=== PATIENT | female | born 1980 | race African-American/Black ===

== ENCOUNTER 2019-12-10 16:16 | Emergency (ER) | payer OTHER ==
[~2019-12-10] VITALS: Ht 170.2 cm; Wt 91.1 kg
[2019-12-10] MEDS ORDERED: ZOLO50TA PO (17:01)
[2019-12-10] MEDS ORDERED: NYQUIL PO (17:01)
[2019-12-10] MEDS ORDERED: ACET-683 PO (17:01)
[2019-12-10] MEDS ORDERED: ALL10TAB2 PO (17:01)
[2019-12-10] MEDS ORDERED: PSEU30TA85 PO (17:01)
[2019-12-10 18:25] VITALS: BP 122/63
== END 2019-12-10 19:19 | disposition home or self-care (01) ==
LOC: M ED 16:16
DX: Z11.59 Encounter for screening for other viral diseases (principal); B34.2 Coronavirus infection, unspecified; Z79.899 Other long term (current) drug therapy; Z91.010 Allergy to peanuts; Z20.828 Contact with and (suspected) exposure to other viral communicable diseases

== ENCOUNTER 2020-09-14 15:34 | Emergency (ER) | payer OTHER ==
[~2020-09-14 15:34] MED LIST: ACET-683 PO; ALL10TAB2 PO; NYQUIL PO; PSEU30TA85 PO; ZOLO50TA PO
--- NOTE | 2020-09-14 16:47 | REP ---
INDICATION: chest pain. COMPARISON: No comparison chest x-ray. TECHNIQUE: Portable upright AP chest radiograph. FINDINGS: The lungs are well inflated and free of infiltrate. Pleural angles are sharp. Heart size is normal. Pulmonary vasculature is not increased. EKG monitoring electrodes are seen. IMPRESSION: Negative portable chest x-ray.. <Electronically signed by Roger Orta > 09/14/20 [id number]
[2020-09-14] MEDS ORDERED: ACETAMINOPHEN 325 MG TAB PO ONE (17:00)
[2020-09-14 17:04] LABS: BASO % 0.5 % (0.0-1.0); EOS # 0.3 10^3/uL (0.0-0.5); EOS % 3.5 % (0.0-3.0); HEMATOCRIT 34.6 % (36.0-47.0); HEMOGLOBIN 11.2 g/dl (12.0-15.5); LYMPH # 1.5 10^3/uL (1.5-5.0); LYMPH % 19.2 % (24.0-44.0); MEAN CORPUSCULAR HEMOGLOBIN 26.9 pg (27.0-33.0); MEAN CORPUSCULAR HGB CONC 32.4 g/dl (32.0-36.5); MONO # 0.6 10^3/uL (0.0-0.8); MONO % 7.3 % (2.0-8.0); NEUTROPHILS # 5.3 10^3/uL (1.5-8.5); NEUTROPHILS % 68.5 % (36.0-66.0); PLATELET COUNT, AUTOMATED 256 10^3/uL (150-450); RED BLOOD COUNT 4.17 10^6/uL (4.00-5.40); WHITE BLOOD COUNT 7.8 10^3/uL (4.0-10.0)
[2020-09-14 18:43] VITALS: BP 126/76
--- NOTE | 2020-09-15 19:44 | ECGEPIP ---
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
== END 2020-09-14 18:45 | disposition home or self-care (01) ==
LOC: M ED 15:34
DX: O26.892 Other specified pregnancy related conditions, second trimester (principal); M54.12 Radiculopathy, cervical region; R07.89 Other chest pain; O99.512 Diseases of the respiratory system complicating pregnancy, second trimester; J45.909 Unspecified asthma, uncomplicated; Z91.010 Allergy to peanuts; Z3A.20 20 weeks gestation of pregnancy

== ENCOUNTER 2021-01-09 11:40 | Outpatient (CLI) | payer OTHER ==
[~2021-01-09] VITALS: Ht 170.2 cm; Wt 108.6 kg
[~2021-01-09 11:40] MED LIST changes: -PSEU30TA85 PO; +PSEU30TA86 PO
[2021-01-09] MEDS ORDERED: LR 1,000 ML IV SCH (11:55)
[2021-01-09] MEDS ORDERED: LR 1,000 ML IV ONE (11:55)
[2021-01-09 12:02] VITALS: BP 120/73
[2021-01-09] MEDS ORDERED: ONDANSETRON 4MG/2ML VIAL IV ONE (12:15)
[2021-01-09] MEDS ORDERED: FAMOTIDINE INJ 20MG/2ML VIAL (S0028 PER 1) IVP ONE (12:30)
[2021-01-09 13:14] VITALS: BP 123/74
[2021-01-09] MEDS ORDERED: hydrOXYzine 50 MG TAB PO STA (14:07)
--- NOTE | 2021-01-09 14:58 | IPNPDOC ---
Obstetrical Progress Note Date of Service Jan 09, 2021 Subjective 40 yo at 36w0d with BELINDA of 06 FEB 2021 was sent from the clinic for prolonged monitoring and IV fluids. Patient reports that she has been feeling contractions and they have been painful. She also reports that she has heartburn and nausea. She denies vaginal bleeding, leaking of fluid and reports positive movement. She reports that she has not been able to hydrate well due to being hot outside. Objective Vital Signs Date Time Temp Pulse Resp B/P (MAP) Pulse Ox O2 Delivery O2 Flow Rate FiO2 01/09/21 12:02 97.8 88 18 120/73 (89) She reports that her nausea and heartburn is better after IV fluids, pepcid, and nausea. She has been able to eat a meal and tolerated meal well. Cervical exam: Long, thick, closed, posterior, and high Assessment Heart Rate (FHR): 125 Variability: Moderate Accelerations: Present Decelerations: None Tocometer Contractions: Yes Frequency: irregular Assessment and Plan Age: 40 : 5 Term: 2 Pre-term: 0 Abortions: 2 Livin Weeks & Days 36w0d Status: Reassuring Group B Streptococcus: Unknown Additional Comments Discharge to home, certified not in labor Recommended to keep all appointments with [place] [place] [facility] Recommended to hydrate well with 4 liters of water per day Recommended to supervisor opening and picking pepcid that was previously prescribed at the pharmacy Vistaril 100 mg PO given prior to discharge [facility] and PTL precautions discussed. Recommended to return to L&D if symptoms worsen or persist YANG BATEMAN CNM Jan 09, 2021 14:13
== END 2021-01-09 14:41 | disposition home or self-care (01) ==
LOC: M LDO 11:40
PROVIDERS: ATTEND Registered Nurse Maternal Newborn
DX: O47.1 False labor at or after 37 completed weeks of gestation (principal); Z3A.38 38 weeks gestation of pregnancy
CPT/HCPCS: 59025; 96361; 96374; 96375; G0378; G0463; J2405

== ENCOUNTER 2021-01-13 09:42 | Outpatient (CLI) | payer OTHER ==
[~2021-01-13] VITALS: Ht 167.6 cm; Wt 108.9 kg
[2021-01-13 10:00] VITALS: BP 127/71
[2021-01-13] MEDS ORDERED: PRENTAB9 PO (10:11)
[2021-01-13] MEDS ORDERED: HOME MED LIST COMPLETE! XX SCH (10:15)
[2021-01-13 11:20] VITALS: BP 117/77
[2021-01-13] MEDS ORDERED: CYCLOBENZAPRINE 10MG TABLET PO ONE (11:30)
--- NOTE | 2021-01-13 11:51 | IPNPDOC ---
Obstetrical Progress Note Date of Service Jan 13, 2021 Subjective 41 yo @ 36+4 with BELINDA og 07sep 2020 presents complaining of left sided abdominal cramping. reports worsening with movements and better at rest. at its worse cramping gets to a 8/10 and at rest is 3-5/10. patient reports that this pain is different from contraction pain, which is having about 2-4 times per hour. she reports pink discharge this morning, denies intercourse, but was seen 4 days ago and was checked at that time. she denies any fevers chills, nause or vomiting. 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 she denies any urgency, frequency or dysurea. she has no other concerns. Objective Vital Signs Date Time Temp Pulse Resp B/P (MAP) Pulse Ox O2 Delivery O2 Flow Rate FiO2 01/13/21 11:20 97.5 96 18 117/77 (90) 01/13/21 10:00 98 Room Air EXAM NORMAL VITALS ABOVE Regular rate tenderness on the left abdominus muscles with palpation. no CVA tender or suprapubic tenderness SVE: C/T/H Assessment Heart Rate (FHR): 140 Variability: Moderate Accelerations: Positive Decelerations: None Heart Rate Tracing: Category I Tocometer Contractions: Yes Frequency: irregular Sterile Vaginal Examination Dilation: None Station: -3 Cervical Consistency: Medium Cervical Position: Posterior Postion/Presentation: Cephalic presentation Assessment and Plan Status: Reassuring Group B Streptococcus: Unknown Anticipate: Other Additional Comments 41 yo @ 36+4 with BELINDA og 07sep 2020 presents complaining of left sided abdominal cramping. noted to be having muscle spasms. irregular contractions in monitor and closed on SVE, So unlikely that she is in labor. -will start her on flexeril this morning and discharge her with extra pills. -Will start on magnesium oxide for cramping. -F/U in clinic as previously scheduled and they will collect her GBS then as well as place on the induction schedule for 39 weeks for AMA. -GIiven strict return precautions. CHARITY NAYLOR MD Jan 13, 2021 11:51
[2021-01-13] MEDS ORDERED: CYCL5TAB PO (11:53)
[2021-01-13] MEDS ORDERED: MAGN300C PO (11:57)
== END 2021-01-13 12:35 | disposition home or self-care (01) ==
LOC: M LDO 09:42
PROVIDERS: ATTEND Obstetrics & Gynecology
DX: O26.893 Other specified pregnancy related conditions, third trimester (principal); Z3A.36 36 weeks gestation of pregnancy; R25.2 Cramp and spasm; N89.8 Other specified noninflammatory disorders of vagina; O09.523 Supervision of elderly multigravida, third trimester; Z91.010 Allergy to peanuts
CPT/HCPCS: 59025; G0378; G0463

== ENCOUNTER 2021-02-03 09:12 | Inpatient (IN) | payer OTHER ==
[~2021-02-03] VITALS: Ht 170.2 cm; Wt 109.6 kg
[2021-02-03] VITALS (25 sets, daily range): BP systolic 114–141; BP diastolic 45–87
[~2021-02-03 09:12] MED LIST changes: +CYCL5TAB PO; +MAGN300C PO; +PRENTAB9 PO
[2021-02-03] MEDS ORDERED: PRIL20TA2 PO (09:39)
[2021-02-03] MEDS ORDERED: HOME MED LIST COMPLETE! XX SCH (09:40)
[2021-02-03] MEDS ORDERED: PENICILLIN G POTASSIUM IV 5 MU in D5W MINI-BAG PLUS 100 ML IV STA (10:41)
[2021-02-03] MEDS ORDERED: OXYTOCIN INJ 10 UNITS/ML VIAL (J2590) IV PRN (10:45)
[2021-02-03] MEDS ORDERED: OXYTOCIN DRIP 30 UNITS in IV 1 EA IV PRN (10:45)
[2021-02-03] MEDS ORDERED: LACTATED RINGER'S 1000 ML IV ONE (10:45)
[2021-02-03] MEDS ORDERED: METHYLERGONOVINE MALEATE 0.2 MG/ML VIAL (J2210) IM PRN (10:45)
[2021-02-03] MEDS ORDERED: miSOPROStol 50MCG 1/2 TABLET PO ONE ×2 (10:45→15:00)
[2021-02-03] MEDS ORDERED: LR 1,000 ML IV SCH (10:45)
[2021-02-03 11:17] LABS: HEMATOCRIT 31.8 % (36.0-47.0); HEMOGLOBIN 10.3 g/dl (12.0-15.5); MEAN CORPUSCULAR HEMOGLOBIN 26.5 pg (27.0-33.0); MEAN CORPUSCULAR HGB CONC 32.4 g/dl (32.0-36.5); PLATELET COUNT, AUTOMATED 217 10^3/uL (150-450); RED BLOOD COUNT 3.88 10^6/uL (4.00-5.40); WHITE BLOOD COUNT 7.7 10^3/uL (4.0-10.0)
[2021-02-03 11:31] LABS: AMORPHOUS SEDIMENT SMALL (NEGATIVE); APPEARANCE, URINE TURBID (CLEAR); BACTERIA, URINE AUTO 2+ (NEGATIVE); BILIRUBIN, URINE AUTO NEGATIVE (NEGATIVE); BLOOD, URINE BLOOD 2+ (NEGATIVE); COLOR, URINE YELLOW (YELLOW); GLUCOSE, URINE (UA) AUTO NEGATIVE (NEGATIVE); KETONE, URINE AUTO NEGATIVE (NEGATIVE); LEUKOCYTE ESTERASE, URINE AUTO 3+ (NEGATIVE); NITRITE, URINE AUTO NEGATIVE (NEGATIVE); PROTEIN, URINE AUTO NEGATIVE (NEGATIVE); RBC, URINE AUTO 151 /HPF (0-3); SPECIFIC GRAVITY URINE AUTO 1.002 (1.002-1.035); SQUAMOUS EPITHELIAL CELL UR AU 19 /HPF (0-6); TRANSITIONAL EPITHELIAL AUTO 1 /HPF; URIC ACID CRYSTALS LARGE; UROBILINOGEN, URINE AUTO 0.2 mg/dL (0.0-2.0); WBC, URINE AUTO 22 /HPF (0-3)
--- NOTE | 2021-02-03 12:23 | HPEPDOC ---
Obstetrical History & Physical General Date of Admission Item Value Date Time Urine Color YELLOW 02/03/21 1059 Urine Appearance TURBID H 02/03/21 1059 Urine pH 6.0 UNITS 02/03/21 1059 Urine Specific Lillie 1.002 02/03/21 1059 Urine Protein NEGATIVE mg/dL 02/03/21 1059 Urine Glucose (Auto)(UA) NEGATIVE mg/dL 02/03/21 1059 Urine Ketones (Auto) NEGATIVE mg/dL 02/03/21 1059 Urine Blood 2+ H 02/03/21 1059 Urine Nitrite NEGATIVE 02/03/21 1059 Urine Bilirubin NEGATIVE 02/03/21 1059 Urine Urobilinogen 0.2 mg/dL 02/03/21 1059 Urine Leukocyte Esterase (Auto) 3+ H 02/03/21 1059 Urine WBC (Auto) 22 /HPF H 02/03/21 1059 Urine RBC (Auto) 151 /HPF H 02/03/21 1059 Urine Hyaline Casts (Auto) 0 /LPF 02/03/21 1059 Urine Bacteria (Auto) 2+ H 02/03/21 1059 Urine Squamous Epithelial Cells 19 /HPF 02/03/21 1059 Urine Transitional Epithelial Cells 1 /HPF 02/03/21 1059 Urine Uric Acid Crystals (Auto) LARGE 02/03/21 1059 Urine Amorphous Sediment (Auto) SMALL H 02/03/21 1059 Item Value Date Time White Blood Count 7.7 10^3/uL 02/03/21 1059 Red Blood Count 3.88 10^6/uL L 02/03/21 1059 Hemoglobin 10.3 g/dl L 02/03/21 1059 Hematocrit 31.8 % L 02/03/21 1059 Mean Corpuscular Volume 82.0 fl 02/03/21 1059 Mean Corpuscular Hemoglobin 26.5 pg L 02/03/21 1059 Mean Corpuscular Hemoglobin Concent 32.4 g/dl 02/03/21 1059 Red Cell Distribution Width 16.2 % H 02/03/21 1059 Platelet Count 217 10^3/uL 02/03/21 1059 Nucleated Red Blood Cells % (auto) 1.3 % H 02/03/21 1059 Feb 03, 2021 at 09:12 Primary Care Physician: Robin Chang MD History of Present Illness 41 y,o A2 LMP 05/02/2020 EDC BY [facility] 11.0 WEEKS 02/06/21 FOR IOL AT 40.3 WEEKS FOR IOL Chief Complaint: Induction of labor Information Provided By: Patient Age: 41 : 5 Term: 2 Pre-term: 0 Abortions: 0 Livin Care Care: Good Care Number of Visits: 10 Dating Final EDC: Feb 06, 2021 Final EDC for Daily Update: Feb 06, 2021 LMP: May 02, 2020 1st Trimester Date: Jul 20, 2020 Weeks + Days: 11.0 Estimated Date of Confinement: Feb 06, 2021 EGA at Admission: 40.3 Antepartum Course Diagnos(e)s 41 Y.O AMA GBS POSITIVE FIBROID UTERUS DEPRESSION ON MEDICATION ASTHMA MEDS Height (inches): 67 Pre- weight (lbs.): 222.0 Admission Weight (lbs.): 236 Change in Weight (lbs.): 14 Past Medical History Past Obstetrical History #1: Past Obstetrical History: Multigravida Date of Delivery: Sep 22, 2002 Type of Delivery: Spontaneous Vaginal Del. Sex of Infant: Male Weight of Infant (grams): 3118 Complications: No Past Obstetrical History #2: Past Obstetrical History: Multigravida Date of Delivery: Jun 21, 2019 Gestation: 40 Type of Delivery: Spontaneous Vaginal Del. 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 (07/2006 7 WEEKS, 10/2016 8 WEEKS SPON) Past Medical History Medical History ASTHMA.DEPRESSION Surgical History: Denies/None Family History Significant Family History: Cancer (BREAST,CERVICAL,LIVER CANCER,SCHIZOPHRENIA) Family History MOTHER BREAST CANCER 1999 GRANDMOTHER CERVICAL CANCER GRANDFATHER LIVER CANCER SISTER SCHIZOPHRENIA Social History Social history NON SMOKER NO ETOH NO VAPING NO RECREATIONAL DRUGS NO VIOLENCE Marital Status: Family situation: Spouse/partner home Psychosocial History: Depression (ON [place]OLO[place]) * Smoker: non-smoker Alcohol: Denies Drugs: denies Abuse Violence Screening Have you been hit/kicked/slapp: No Have you been sexually assault: No Imunizations Tdap status: current Influenza Status: current Allergies Coded Allergies: peanut (Verified Allergy, Unknown, 12/10/19) Medications Scheduled Omeprazole Magnesium (Prilosec Otc) 20 Mg Tablet.dr, 20 MG PO DAILY No.137/Iron/Folic Acd ( Vitamin Tablet) 1 Each Tablet, 1 TAB PO DAILY Sertraline Hcl (Zoloft) 50 Mg Tablet, 2 TAB PO DAILY Scheduled PRN Acetaminophen (Acetaminophen) 500 Mg Tablet, 2 TAB PO Q6HP PRN for PAIN LEVEL 5- 10 Physical Examination Physical Examination GENERAL: Alert and oriented times three. BREAST: . ABDOMEN: Gravid and non-tender to touch. FETUS: Is vertex (VTX) by sterile vaginal examination (SVE), fetus is vertex (VTX) by Peter. HEART RATE: Regular rate and rhythm. LUNGS: Clear to auscultation (CTA). EXTREMITIES: No edema. No clonus. Deep tendon reflexes (DTRs) + . Other physical findings NORMOCEPHALIC AROMATIC NECK FULL RANGE OF MOTION PERRLA, CHEST HR DISTAL PULSES SYMMETRIC LUNGS CTA, NO WHEEZE NO RHONCHI BACK RCVA TENDERNESS NO ABDOMEN GRAVID SF 42 CM SUGGESTIVE POLYHYDRAMNIOS 4 QUADRANT BOWEL SOUNDS VERTEX PELVIC VERTEX -3 STATION VERTEX NOT APPLIED SOFT POSTERIOR 1 CM 0% EFFACED SKIN NO RASHES LESIONS OR PYRITES MUSCULOSKELETAL NO ARTHRALGIA, MYALGIA OR JOINT PAIN RESPIRATORY NO COMPLAINTS COUGH WHEEZE SOB OR LEZAMA HEME NO BLEEDING NO BRUISING URO NO BLADDER ISSUES DIGESTIVE NO N/V/D/C/F/ Vital Signs/I&O Vital Signs Date Time Temp Pulse Resp B/P (MAP) Pulse Ox O2 Delivery O2 Flow Rate FiO2 02/03/21 09:43 97.7 98 18 122/72 (89) Laboratory Data 24H LABS Laboratory Tests 2 02/03/21 10:59: Nucleated Red Blood Cells % (auto) 1.3H, Urine Color YELLOW, Urine Appearance TURBIDH, Urine pH 6.0, Urine Specific Lillie 1.002, Urine Protein NEGATIVE, Urine Glucose (Auto)(UA) NEGATIVE, Urine Ketones (Auto) NEGATIVE, Urine Blood 2+H, Urine Nitrite NEGATIVE, Urine Bilirubin NEGATIVE, Urine Urobilinogen 0.2, Urine Leukocyte Esterase (Auto) 3+H, Urine WBC (Auto) 22H, Urine RBC (Auto) 151H, Urine Hyaline Casts (Auto) 0, Urine Bacteria (Auto) 2+H, Urine Squamous Epithelial Cells 19, Urine Transitional Epithelial Cells 1, Urine Uric Acid Crystals (Auto) LARGE, Urine Amorphous Sediment (Auto) SMALLH, Urine Sperm ( Auto) CBC/BMP Laboratory Tests 02/03/21 10:59 Pertinent Laboratoy Data Blood Type: B+ RBC Antibody Screen: Negative HIV: Negative Hepatitis B: Negative Rapid Plasma Reagin: Nonreactive Rubella: Immune Varicella: Immune Chlamydia/Gonorrhea: Negative Group B Streptococcus: Positive Quad Screen Test: Negative Cystic Fibrosis: Negative Anatomy Ultrasound Ultrasound Date: Jan 11, 2021 Placenta Location: Anterior Normal Anatomy: Yes Placenta Previa: No Estimated Weight (grams): 3088 Steroid Therapy Steroid Therapy: No Vaginal Examination Dilation: 1cm Effacement: 50% Station: -3 Cervical Consistency: Soft Cervical Position: Posterior Presentation: Cephalic presentation Assessment Variability: Moderate Accelerations: Present Decelerations: None Tocometer Contractions: No Assessment/Plan Assessment 41 year-old (G5 para (P)2 at 40.3 weeks by 11 -week ultrasound. Presents to Labor and Delivery (L&D) . FOR IOL Plan Admit and orient. Club Former and consent. Diet: JOSE Group B Streptococcus (GBS) POSITIVE Labs and intravenous (IV) per unit protocol. Counseled on Pitocin and induction of labor (IOL). Lactated Ringers (LR): Bolus 1000 mL, PRE EPIDURAL then at 125 mL/hr. Anticipate [normal spontaneous delivery ()]. C-S as appropriate. Labor and Delivery Counseling REVIEWED VAGINAL DELIVERY RISK HEMORRHAGE INFECTION PERFORATION REOPERATION ISSUE WITH FIBROIDS RISK OF PPH AND RISK BLOOD TRANSFUSION, REMOTE HYSTERECTOMY FOR LIFE THREATENING BLEEDING ADMISSION NICU BABY, NOTED MAY REQUIRE EMERGENCY CS FOR MEDICAL OR INDICATION USE OP PITOCIN OR MISOPROSTOL MAY LEAD TO IN CREASE RISK OF C/S AND OR DISTRESS, OR UTERINE RUPTURE OR TACHYSYSTOLE OR HEMORRHAGE USE OF FORCEPS OR VACUUM MAY LEAD TO CEPHALOHEMATOMA, BRUISE HEMATOMA OR SUBDURAL HEMATOMA EXPRESSED UNDERSTANDING SAFE TO PROCEED Robin Chang MD Feb 03, 2021 12:20
[2021-02-03] MEDS ORDERED: PENICILLIN G POTASSIUM IV 2.5 MU in IV 1 EA IV SCH ×2 (14:45→16:00)
[2021-02-03] MEDS: SERTRALINE HCL 50 MG TAB PO SCH (15:00)
--- NOTE | 2021-02-03 20:05 | IPNPDOC ---
Text Note Date of Service The patient was seen on 02/03/21. NOTE 02/03/21 contractions moderate catagory 1 strip cervix mid position 2-3 cm s oft 70% effaced -3 station Plan epidural then arom safe to proceed VS,Maureen, I+O VS, Maureen, I+O Laboratory Tests 02/03/21 10:59 Vital Signs Date Time Temp Pulse Resp B/P (MAP) Pulse Ox O2 Delivery O2 Flow Rate FiO2 02/03/21 17:58 97.4 88 18 129/82 (98) Robin Chang MD Feb 03, 2021 20:05
[2021-02-03] MEDS ORDERED: FENTANYL 2MCG/ML ROPIVACAINE 0.2% IN 0.9% NACL 100ML IVBAG As Ordered ONE (21:24)
[2021-02-03] MEDS ORDERED: diphenhydrAMINE 50MG/ML VIAL (J1200) IV PRN (21:29)
[2021-02-03] MEDS ORDERED: NALOXONE INJ 0.4MG/1ML VIAL (J2310 PER 1MG) IV PRN (21:29)
[2021-02-03] MEDS ORDERED: LACTATED RINGER'S 1000 ML IV PRN (21:29)
[2021-02-03] MEDS ORDERED: REFRIGERATOR IV KEYS XX PRN (21:29)
[2021-02-03] MEDS ORDERED: ePHEDrine SULFATE 25 MG/5 ML(5MG/ML) SYRINGE IV PRN (21:29)
[2021-02-03] MEDS ORDERED: EPIDURAL COMMENT XX SCH (21:29)
[2021-02-03] MEDS ORDERED: ONDANSETRON 4MG/2ML VIAL IV PRN (21:29)
[2021-02-03] MEDS ORDERED: EPIDURAL/PCA KEYS XX PRN (21:29)
[2021-02-03] MEDS ORDERED: FENTANYL/ROPIVACAINE/NACL BAG 100 ML EPIDURAL SCH (21:29)
[2021-02-03] MEDS ORDERED: OXYTOCIN 30 UNITS IN 0.9% NaCl 500ML IV BAG (J2590) As Ordered ONE (23:00)
[2021-02-04] MEDS ORDERED: METHYLERGONOVINE MALEATE 0.2 MG TAB PO PRN (00:55)
[2021-02-04] MEDS ORDERED: ACETAMINOPHEN TAB 650MG DOSE (2X325MG) PO PRN (00:55)
[2021-02-04] MEDS ORDERED: IBUPROFEN 800 MG TAB PO PRN (00:55)
[2021-02-04] MEDS ORDERED: MOM 30ML SUSPENSION UDC PO PRN (00:55)
[2021-02-04] MEDS ORDERED: DOCUSATE SODIUM 100MG CAPSULE PO PRN (00:55)
[2021-02-04] MEDS ORDERED: ANUSOL HC CREAM 30GM TOP PRN (00:55)
[2021-02-04] MEDS ORDERED: RHOGAM 300 MCG (1500 IU) INJ (J2790) IM SCH (00:55)
[2021-02-04] MEDS ORDERED: OXYTOCIN DRIP 30 UNITS in IV 1 EA IV ONE (00:55)
[2021-02-04] MEDS ORDERED: DIBUCAINE 1% OINTMENT 30GM TOP PRN (00:55)
[2021-02-04] MEDS ORDERED: MEASLES,MUMPS,RUBELLA VACCINE INJ (MMR-II) (90707) SC SCH (00:55)
[2021-02-04 02:15] VITALS: BP 118/76
[2021-02-04] MEDS: IBUPROFEN 600MG TAB PO PRN ×2 (05:37→12:38)
[2021-02-04 06:00] VITALS: BP 111/63
[2021-02-04] MEDS: ACETAMINOPHEN 500 MG TAB PO PRN ×2 (07:19→19:12)
[2021-02-04] MEDS: PRENATAL VITAMINS CHEWABLE TABLET PO SCH (07:49)
[2021-02-04] MEDS: SERTRALINE HCL 50 MG TAB PO SCH (07:49)
--- NOTE | 2021-02-04 15:21 | DN ---
DELIVERY NOTE DATE OF DELIVERY: 02/04/2021 DESCRIPTION OF DELIVERY: A 41-year-old, 5, para 2, admitted for induction of labor, being an AMA at 41 years of age and a fibroid uterus. She had an epidural in place, spontaneous vaginal delivery, intact perineum, male infant, 8 lb, 4 oz, 3740 gm, Apgars of 9 and 9 in 1 and 5 minutes respectively. Terminal meconium at delivery. Arterial and venous pH done. However, it is pending. The placenta delivered spontaneously thereafter, three-vessel cord, membranes and tissues intact. The uterus contracted well on her Pitocin. The patient does have a large fundal fibroid. However, the uterus remained firm. Estimated blood loss: 200 mL. Reexamination of the anterior, posterior and lateral zarate were intact. Sphincter was tight. Cervix was clean and retracted. Patient and baby tolerating procedure well. [facility]
[2021-02-04 17:46] VITALS: BP 123/74
[2021-02-05 06:00] VITALS: BP 129/87
[2021-02-05 06:35] LABS: HEMATOCRIT 30.2 % (36.0-47.0); HEMOGLOBIN 9.8 g/dl (12.0-15.5); MEAN CORPUSCULAR HEMOGLOBIN 26.6 pg (27.0-33.0); MEAN CORPUSCULAR HGB CONC 32.5 g/dl (32.0-36.5); MEAN CORPUSCULAR VOLUME 81.8 fl (80.0-96.0); PLATELET COUNT, AUTOMATED 187 10^3/uL (150-450); RED BLOOD COUNT 3.69 10^6/uL (4.00-5.40); WHITE BLOOD COUNT 8.9 10^3/uL (4.0-10.0)
[2021-02-05] MEDS ORDERED: SERT50TA29 PO (07:15)
[2021-02-05] MEDS ORDERED: IBUP-1022 PO (07:15)
[2021-02-05] MEDS ORDERED: COLA100C5 PO (07:15)
[2021-02-05] MEDS: PRENATAL VITAMINS CHEWABLE TABLET PO SCH (07:21)
[2021-02-05] MEDS: SERTRALINE HCL 50 MG TAB PO SCH (07:21)
[2021-02-05] MEDS: IBUPROFEN 600MG TAB PO PRN (07:21)
--- NOTE | 2021-02-05 08:48 | DSES ---
DISCHARGE SUMMARY DATE OF ADMISSION: 02/03/2021 DATE OF DISCHARGE: / / BRIEF HISTORY: This lady is a 41-year-old 5, para 3. Risk factors were AMA, GBS positive, fibroid uterus and depression. She came in for induction of labor as an advanced maternal age at 39 weeks of gestation, fibroid uterus. She had an epidural in place, had spontaneous vaginal delivery of male , 8 pounds 4 ounces, 3740 gm, Apgars 9 and 9 at 1 and 5 minutes respectively. Terminal meconium was noted. Arterial and venous pH was drawn but was not sent. Perineum was intact. On her first day we discussed phlebitis, cystitis, mastitis, endometritis and cellulitis, diet, exercise, pain management, perineal, breast and wound care. The rest of the examination is unremarkable. Normocephalic, atraumatic. Neck full range of motion. Pupils equal and reactive to light. Distal pulses are symmetric. No evidence of DVT, PE or superficial phlebitis. Chest is clear bilaterally to bases, no wheezes or rhonchi. No CVA tenderness. Abdomen is soft, four quadrant bowel sounds are noted. Lochia is moderate. No rashes, lesions or pruritus. No arthralgias or myalgias. No complaint of joint pain. No complaint of cough, wheeze, shortness of breath or dyspnea on exertion. No nausea, vomiting, diarrhea or constipation. No urgency or frequency. In summary, we have a term gestation, delivered livebirth male infant. On discharge her hemoglobin was 9.8, hematocrit 30.2, platelets 187. Vital signs on discharge: Blood pressure 129/87, respirations 18, pulse 86 and temperature 97.3. The patient is to pickle cutter her meds at [facility], has a 6 weeks checkup at [facility]. She is requesting Nexplanon for control while is attempting to get a vasectomy. All questions were answered. 20 minute discussion. The patient was discharged improved. cc: [facility]
== END 2021-02-05 11:35 | disposition home or self-care (01) | DRG 807 ==
LOC: M LDI 09:12 → M OBS 02-04 02:08
PROVIDERS: ADMIT Obstetrics & Gynecology; ATTEND Obstetrics & Gynecology
PROC: 3E033VJ Introduction of Other Hormone into Peripheral Vein, Percutaneous Approach (ICD-10-PCS; 2021-02-03)
PROC: 10E0XZZ Delivery of Products of Conception, External Approach (ICD-10-PCS; principal; 2021-02-04)
DX: O48.0 Post-term pregnancy (principal); Z37.0 Single live birth; Z3A.40 40 weeks gestation of pregnancy; O99.824 Streptococcus B carrier state complicating childbirth; O99.344 Other mental disorders complicating childbirth; F32.9 Major depressive disorder, single episode, unspecified; O99.52 Diseases of the respiratory system complicating childbirth; J45.909 Unspecified asthma, uncomplicated